=== PATIENT | male | born 1975 | race African-American/Black ===

== ENCOUNTER → 2016-10-17 | Outpatient (CLI) | payer OTHER ==
[~2016-10-17] MED LIST: BUPR-79 PO; BUSP15TA70 PO; IBUP-1050 PO; PRLSR20 PO
[2016-10-17 09:38] LABS: BASO % 0.3 %; BASO ABS # 0.02 K/uL (0-0.2); COMPLETE YES; EOS % 3.6 %; HEMATOCRIT 44.3 % (42-52); IG% 0.1 %; LYMPH % 34.6 %; LYMPH ABS # 2.31 K/uL (1.2-3.4); MEAN CELL VOLUME 88.6 fL (80-100); MEAN CORPUSCULAR HEMOGLOBIN 30.4 pg (25-34); MEAN CORPUSCULAR HGB CONC 34.3 g/dl (32-36); MONO % 9.9 %; NEUT % 51.5 %; PLATELET COUNT 242 K/uL (130-400); WHITE BLOOD COUNT 6.67 K/uL (4.8-10.8)
[2016-10-17 10:02] LABS: ALT/SGPT 43 U/L (12-78); BLOOD UREA NITROGEN 12 mg/dl (7-18); BUN/CREATININE RATIO 10.9 (10-20); CALCIUM 8.7 mg/dl (8.5-10.1); CARBON DIOXIDE 29 mmol/L (21-32); CHLORIDE 105 mmol/L (98-107); CHOLESTEROL 274 mg/dl (0-200); GLUCOSE 138 mg/dl (70-99); POTASSIUM 4.1 mmol/L (3.5-5.1); SODIUM 140 mmol/L (136-145); TRIGLYCERIDES 172 mg/dl (0-150); VERY LOW DENSITY LIPOPROT CALC 34 mg/dl
[2016-10-17 10:19] LABS: ALB/GLOB RATIO 0.9 (0.9-2); ALKALINE PHOSPHATASE 100 U/L (45-117); AST/SGOT 23 U/L (15-37); CHOLESTEROL/HDL RATIO 7.6; HDL CHOLESTEROL 36 mg/dl; LDL CHOLESTEROL CALCULATED 204 mg/dl
--- NOTE | 2016-10-24 11:16 | CODING QUERY MEDICAL NECESSITY ---
SUPPORTING DIAGNOSIS NEEDED A supporting diagnosis is required for the test/procedure performed on this patient in order for us to be reimbursed by the patient's insurance. Please provide a supporting diagnosis for the following test/procedure listed below next to the test name along with your signature. *If there is no additional diagnosis for this patient that would support the following test/procedure please document that below next to the test/procedure. Test(s)/Procedure(s) that require a supporting diagnosis: * VITAMIN D, 25-HYDROXY DIAGNOSIS: Provider Signature: Date: Thank you Nalini Ayala [employer] Once completed, please kindly fax back to [phone] For questions please call [phone]
== END | disposition home or self-care (01) ==
LOC: C.LAB 07:22
PROVIDERS: ATTEND Psychiatry & Neurology Psychiatry
DX: F31.81 Bipolar II disorder (principal); Z13.21 Encounter for screening for nutritional disorder

== ENCOUNTER → 2017-02-12 | Outpatient (CLI) | payer OTHER ==
[~2017-02-12] MED LIST changes: +SINCALIDE INJ 2.4 MCG in SODIUM CHLORIDE 0.9% 100ML 100 ML IV ONE
--- NOTE | 2017-02-12 10:08 | DIAGNOSTIC IMAGING REPORT ---
NUCLEAR MEDICINE HEPATOBILIARY SCAN WITH EJECTION FRACTION HISTORY: Gallbladder POLYP AND FATTY LIVER COMPARISON: None. TECHNIQUE: Immediately following the intravenous administration of 5.4 mCi Tc-99m Choletec, dynamic anterior abdominal imaging pre/post 2.4 mcg of Kinevac was performed. FINDINGS: Uniform hepatic tracer accumulation is shown. Prompt intrahepatic biliary excretion is seen. The gallbladder, common bile duct, and small bowel are all visualized by 60 minutes. This appearance represents the normal sequence of biliary excretion. The gall bladder ejection fraction following administration of Kinevac was 90% (normal >35%). IMPRESSION: 1. No evidence for cystic duct obstruction. 2. Gallbladder ejection fraction calculated to be 90 %. Electronically signed by: Johnathon Carvalho M.D. 02/12/2017 10:06 AM Dictated Date/Time: 02/12/2017 10:05 AM
== END | disposition home or self-care (01) ==
LOC: C.NUCL 07:42
PROVIDERS: ATTEND Physician Assistant
DX: K82.4 Cholesterolosis of gallbladder (principal); K76.0 Fatty (change of) liver, not elsewhere classified

== ENCOUNTER 2023-08-30 06:38 | Inpatient (IN) ==
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
--- OUTSIDE RECORDS SUMMARY | 2023-08-30 06:43 | External Medical Summary | Summary of Care ---
Author Name Unknown Organization [facility] Address [address] [place] [address] Phone [phone] Care Team Providers Care Shaft Repairer Name Role Phone Linda Membreno MD Primary Care Provid er Reason for Visit * Reason Onset Date Comments Medication Refill 08/02/2023 Encounter Details Date Type Department Care Team (Late st Contact Info) Description 08/02/2023 Refill [facility] [address] [place] [address] Linda Membreno MD [address] [place] [address] Other intervertebral disc degeneration, lumbar region; Cervical disc disorder with radiculopathy Allergies Active Allergy Reactions Criticality Noted Date Comments Adhesive Tape 04/27/2011 Rash, sensitive skin Other Allergy (See Comments) Rash 018 Tide Detergent documented as of this encounter (statuses as of 08/05/2023) Medications Medication Sig Dispensed Refills Start Date [...] mouth 2 times a day. 11/22/2020 Active Amphetamine-Dextroa mphetamine 30 MG Oral Tablet Take 1 Tablet [...] Omeprazole 20 MG Oral Capsule Delayed Release (PriLOSEC)Indicatio ns:Gastroesophageal reflux disease without esophagitis Take 1 Capsule by mouth in the morning. 30 Capsule 11 10/23/2022 Active HYDROcodone-Acetami nophen 7.5-325 MG Oral Tablet Take 1 Tablet by mouth every 6 hours as needed. Prescribed by Pain Mgmt in [place]. Active Lidocaine Viscous HCl 2 % Mouth/Throat SolutionIndications :Sore throat (viral) SWISH AND SPIT NEEDED FOR [...] 04/26/2023 Active Carisoprodol 350 MG Oral Tablet (Soma)Indications:O ther intervertebral disc degeneration, lumbar region,Cervical disc disorder with radiculopathy Take 1 Tablet by mouth 2 times a day as needed for Muscle spasms. 60 Tablet 08/05/2023 Active Carisoprodol 350 MG Oral Tablet (Soma)Indications:O ther intervertebral disc degeneration, lumbar region,Cervical disc disorder with radiculopathy Take 1 Tablet by mouth 2 times a day as needed for Muscle spasms. 60 Tablet 06/28/2023 4 Discontinue d(Refill) Hospital, Clinic, or Other Facility Administered Medication Ordered Dose Route Frequency Start Date End Date Status vitamin b-12 (Cyanocobalamin) inj 1,000 mcgIndications:S/P gastric bypass 1000 mcg IM [id number] 04/02/2023 03/03/2024 Active documented as of this encounter (statuses as of 08/05/2023) Active Problems Problem Noted Date Diagnosed Date [...] single colonoscopy and goes yearly [facility]CGINN[facility] OTHER*[id number] 01/21/2018 Bipolar 2 disorder 10/22/2016 Adjustment disorder with depressed mood 10/30/19 15 S/P uvulopalatopharyngoplasty 01/07/2013 Recurrent inguinal hernia unilateral 09/11/2012 Tobacco use disorder 09/11/2012 GERD (gastroesophageal reflux disease) Arthritis Chronic low back pain Dyslipidemia, goal LDL below 160 History of sleep apnea Overview: Resolved with weight loss (163 lb) documented as of this encounter (statuses as of 08/05/2023) Resolved Problems Problem Noted Date Diagnosed Date [...] as of this encounter (statuses as of 08/05/2023) Immunizations Name Administration Dates Next Due TDAP [...] money to get more. Never true 04/01/2023 Sex and Gender Information Value Date [...] (15 years old or older) No 03/07/19 19 Cognitive Status Response Date of Assessm ent Because of a physical, menta l, or emotional condition, do you have serious difficulty concentrating, remembering, or making decisions? (5 years old or older) No 03/07/2018 documented as of this encounter Miscellaneous Notes * Telephone Encounter - Linda Membreno MD - 08/05/2023 8:32 AM EDT Signed Prescriptions: Disp Refills Carisoprodol 350 MG Oral Tablet (Soma) 60 Tab*0 Sig: Take 1 Tablet by mouth 2 times a day as needed for Muscle spasms. Authorizing Provider: LINDA MEMBRENO * Telephone Encounter - Gloria Rendon [facility] - 08/02/2023 3:41 PM EDTPending Prescriptions: Disp Refills Carisoprodol 350 MG Oral Tablet (Soma) 60 Tab*0 Sig: Take 1 Tablet by mouth 2 times a day as needed for Muscle spasms. * Telephone Encounter - Gloria Rendon RPh - 08/02/2023 3:40 PM EDT I have reviewed the patients controlled substance dispensing history in the Prescription Drug Monitoring Program in compliance with the [facility] regulations before prescribing a controlled substance. PDMP checked on 08/02/2023. Pending Prescriptions: Disp Refills Carisoprodol 350 MG Oral Tablet (Soma) 60 Tab*0 Sig: Take 1 Tablet by mouth 2 times a day as needed for Muscle spasms. Last Visit: 05/02/2023 (in office), 06/15/2020 (telemedicine) Next Visit: Visit date not found Date medication was last filled: 06/28/23 Date medication is due for refill: 07/27/23 [id number] [id number] Is this request for a controlled substance? Yes and Urine Drug Screen was completed Toxicology results: Results for orders placed or performed during the hospital encounter of 08/20/22 TOXICOLOGY, URINE SCREEN W/ CONFIRMATION Result Value Amphetamines Screen, U Positive (A) Benzodiazepines Screen, U Negative Cannabinoids Screen, U Negative Cocaine Metabolite Screen, U Negative Fentanyl Screen, U Positive (A) Hydrocodone Screen, U Negative Methadone Metabolite Screen, U Negative Morphine/Codeine Screen, U Negative Oxycodone Screen, U Negative Narrative Cutoff Concentrations: Drug Level Amphetamines 500 ng/mL Benzodiazepines 100 ng/mL Cannabinoids 50 ng/mL Cocaine Metabolite 150 ng/mL Fentanyl 1 ng/mL Hydrocodone / Hydromorphone 300 ng/mL Methadone Metabolite 100 ng/mL Morphine / Codeine 300 ng/mL Oxycodone / Oxymorphone 100 ng/mL Screening results are presumptive and can only be used for medical purposes. Positive screening results are reflexed to confirmatory testing. Please approve if appropriate. Thanks, Gloria Rendon, PharmD Clinical Pharmacist [facility] ([facility] [phone] 08/02/2023, 3:40 PM * Telephone Encounter - Cynthia Meyer CPhT - 08/02/2023 3:31 PM EDT Pt is completely out of medication asking high priority. Did you pend patient's preferred pharmacy and medication before forwarding?yes Pharmacy: [id number] [id number] Pending Prescriptions: Disp Refills Carisoprodol 350 MG Oral Tablet (Soma) 60 Tab*0 Sig: Take 1 Tablet by mouth 2 times a day as needed for Muscle spasms. Last Visit: 05/02/2023 (in office), 06/15/2020 (telemedicine) Next Visit: Visit date not found If no future appointments scheduled, and last appointment is greater than a year ago, please schedule patient for a follow-up appointment Last date the medication was ordered: 06/28/2023 Is this request for a controlled substance?Yes, What was the last refill date 06/28/2023 w/ quantity 60 and dosage 350 MG and Urine Drug Screen was completed Urine Drug Screen: Results for orders placed or performed during the hospital encounter of 08/20/22 TOXICOLOGY, URINE SCREEN W/ CONFIRMATION Result Value Amphetamines Screen, U Positive (A) Benzodiazepines Screen, U Negative Cannabinoids Screen, U Negative Cocaine Metabolite Screen, U Negative Fentanyl Screen, U Positive (A) Hydrocodone Screen, U Negative Methadone Metabolite Screen, U Negative Morphine/Codeine Screen, U Negative Oxycodone Screen, U Negative Narrative Cutoff Concentrations: Drug Level Amphetamines 500 ng/mL Benzodiazepines 100 ng/mL Cannabinoids 50 ng/mL Cocaine Metabolite 150 ng/mL Fentanyl 1 ng/mL Hydrocodone / Hydromorphone 300 ng/mL Methadone Metabolite 100 ng/mL Morphine / Codeine 300 ng/mL Oxycodone / Oxymorphone 100 ng/mL Screening results are presumptive and can only be used for medical purposes. Positive screening results are reflexed to confirmatory testing. Patient Phone Numbers Labs: Lab Results Component Value Date/Time CREAT 1.0 04/22/2023 09:25 AM CREAT 1.1 02/27/2019 07:42 AM POTASSIUM 4.1 04/22/2023 09:25 AM POTASSIUM 3.9 02/27/2019 07:42 AM TSH 0.67 04/22/2023 09:25 AM TSH 0.98 06/06/2018 10:32 AM LDLCALC 123 10/23/2022 10:45 AM LDLCALC 92 02/27/2019 07:42 AM LDLDIRECT NOT APPLICABLE 10/20/2012 07:56 AM ALT 29 04/22/2023 09:25 AM ALT 41 02/27/2019 07:42 AM HGBA1C 6.4 (H) 04/22/2023 09:25 AM HGBA1C 6.0 (H) 02/27/2019 07:42 AM documented in this encounter Plan of Treatment Upcoming Encounters Date Type Department Care Team (Late st Contact Info) Description 08/16/2023 9:30 AM EDT Office Visit Orthopaedics Spine Surgery, [facility] [address] [place] [id number] Quinton Toro MD [address] [place] [address] 08/20/2023 9:30 AM EDT [facility] [address] [place] [address] 10/29/2023 2:00 PM EDT Office Visit Nutrition & Weight Management, [facility] [address] [place] [id number] Lorin Frazier PA-C [address] [facility] [place] [id number] Scheduled Procedures Name Priority Associated Diagnoses Date/Ti me COLONOSCOPY FLEXIBLE PROXIMA L DIAGNOSTIC Recall History of colon polyps Family history of colonic polyps Health Maintenance Due Date Last Done Comments Pneumococcal Vaccine: Pediatrics (0 to 5 Years) and At-Risk Patients (6 to 64 Years) (1 of 2 - PCV) 12/16/1979 Hepatitis C Screening 12/16/1991 Hepatitis B (1 of 3 - 19+ 3-dose series) 1992 Cologuard 2018 Fecal Occult Blood Test 2018 11/12/2016 Sigmoidoscopy 2018 COVID-19 Vaccine (1 - 2022- season) 2022 Influenza Vaccine (FLU shot) (Season Ended) 2023 Colonoscopy 04/17/2024 04/17/2019, 04/17/2019 Colorectal Cancer Screening 04/17/2024 HbA1c 04/22/2024 04/22/2023, 09/26, 10/16/2021, Additional history exists Lipid Panel 10/24/2027 10/23/2022, 02/25, 02/27/2019, Additional history exists DTaP,Tdap,and Td Vaccines (2 - Td or Tdap) 09/02/2029 09/03/2019 Albumin/Creatinine Ratio Discontinued 04/30/2017 Diabetic Foot Exam Discontinued 06/11/2017 RETIRED - COLONOSCOPY-EVERY 5 YRS AGES 18-100 Discontinued 04/17/2019, 04/17/2019 Diabetic Eye Exam Discontinued 01/25/2023, , 12/19/2022, Additional history exists GARDASIL-HPV IMMUNIZATION SERIES Aged Out No longer eligible based on patient's age to complete this topic MENINGOCOCCAL (MENACTRA/MENVEO) Aged Out No longer eligible based on patient's age to complete this topic documented as of this encounter Medical Devices Not on filedocumented as of this encounter Visit Diagnoses Diagnosis Other intervertebral disc degeneration, lumbar region Cervical disc disorder with radiculopathy Brachial neuritis or radiculitis nos documented in this encounter Advance Directives * Full Code [...] Power of Attor fausto? No Care Teams Shaft Repairer Relationship Specialty Start Date End Date Linda Membreno MD [address] [facility] [place] [address] PCP - General Family Medicine 01/13/20 documented as of this encounter
[2023-08-30] MEDS: ONDANSETRON INJ 2 MG/ML 2 ML VIAL IV STA (07:35)
--- NOTE | 2023-08-30 07:37 | Emergency Department Note ---
History of Present Illness General Chief complaint: Abdominal Pain Stated complaint: PAIN IN RIGHT SIDE Time Seen by Provider: 08/30/23 06:59 History of Present Illness Maximum Pain Intensity: 9 This is a 47-year-old male that presents to the emergency department via private vehicle with complaints of "left-sided abdominal pain". Patient notes this began yesterday. He notes some the pain is also in his left low back. He notes that since 3 AM this morning he has not been able to sleep since the pain has been persistent and /. He notes associated nausea. He denies any known history of kidney stones. He does have a history of gastric bypass. He has a history of also 2 abdominal hernias performed in about 2001. He denies any trauma, injury, fevers or chills. No vomiting. Patient notes him he takes a deep breath or is increase of the pain in the left lower quadrant area. There is no central chest pain. He is still urinating and moving his bowels. Home Medications Medication Instructions Recorded Confirmed Type calcium-vitamin D3-vitamin K 500 1 tab PO BID 03/15/19 08/30/23 History mg-1,000 unit-40 mcg chewable tablet (Citracal-D3 Soft Chew) mwoaaqud-llwhwhmr-aiajx acid 400 1 tab PO DAILY 03/15/19 08/30/23 History mcg-vit K 20 mcg-lycop 300 mcg tablet (One-A-Day Men's Multivitamin) ziprasidone HCl 80 mg capsule 160 mg PO HS 03/15/19 08/30/23 History dextroamphetamine-amphetamine 30 30 mg PO DAILY 08/20/22 08/30/23 History mg tablet propranolol 10 mg tablet 10 mg PO HS PRN Anxiety 08/20/22 08/30/23 History topiramate 100 mg tablet 100 mg PO BID 08/20/22 08/30/23 History carisoprodol 350 mg tablet 350 mg PO BID PRN Muscle Spasm 09/07/22 08/30/23 History bupropion HCl 200 mg tablet,12 hr 200 mg PO DAILY 08/30/23 08/30/23 History sustained-release hydrocodone 10 mg-acetaminophen 1 tab PO Q6H PRN Pain 08/30/23 08/30/23 History 325 mg tablet omeprazole 20 mg capsule,delayed 20 mg PO DAILY 07/05/24 07/05/24 History release Allergies Allergy/AdvReac Type Severity Reaction Status Date / Time adhesive Allergy Intermediate RASH Verified 08/20/22 18:30 TIDE DETERGENT Allergy Intermediate Hives Uncoded 08/20/22 18:30 Past Med/Surg History Problem List Diverticulitis (Acute) Left sided abdominal pain (Acute) Lumbar degenerative disc disease Chronic lower back pain Diabetes type 2, controlled Sacroiliitis Lumbar facet joint syndrome Medical History Tobacco use disorder Obstructive sleep apnea Esophageal reflux Herniated disc Surgical History History of colonoscopy History of esophagogastroduodenoscopy (EGD) History of gastric bypass Family History Other Cancer Diabetes Heart disease Lung disease Social History Smoking Status: Never smoker Preferred Language: [place]an marital status: current occupational status: employed Feels Safe at Home: Yes Review of Systems A total of 10 systems reviewed and were otherwise negative Physical Exam Vital Signs Vital Signs - 24 hr 08/30/23 06:42 08/30/23 07:43 08/30/23 07:54 Temperature 36.2 C L Temperature Source Temporal Artery Scan Pulse Rate 79 54 L Pulse Rate [Right Finger] 55 L Pulse Rate from SpO2 Sensor 54 L Pulse Rhythm Regular Pulse Rhythm [Right Finger] Regular Pulse Strength Normal Pulse Strength [Right Finger] Normal Respiratory Rate 18 16 16 Respiratory Effort / Characteristics Non-Labored Spontaneous Non-Labored Respiratory Depth Normal Normal Respiratory Pattern Regular Regular Blood Pressure 119/74 149/78 H Blood Pressure [Left Arm] 149/78 H Blood Pressure Mean 89 101 Blood Pressure Mean [Left Arm] 101 Blood Pressure Position Lying Blood Pressure Position [Left Arm] Lying Pulse Oximetry 100 100 99 Oxygen Delivery Method Room Air Room Air Sepsis Recent Fever Within 48 Hours No Sepsis New/Unexplained Change in Mental Status N/A Sepsis Action Taken by Nursing No Action Required 08/30/23 08:09 08/30/23 08:12 08/30/23 08:15 Temperature Temperature Source Pulse Rate 59 L 58 L 58 L Pulse Rate [Right Finger] Pulse Rate from SpO2 Sensor 57 L 58 L Pulse Rhythm Pulse Rhythm [Right Finger] Pulse Strength Pulse Strength [Right Finger] Respiratory Rate 16 17 Respiratory Effort / Characteristics Respiratory Depth Respiratory Pattern Blood Pressure Blood Pressure [Left Arm] Blood Pressure Mean Blood Pressure Mean [Left Arm] Blood Pressure Position Blood Pressure Position [Left Arm] Pulse Oximetry 99 100 Oxygen Delivery Method Sepsis Recent Fever Within 48 Hours Sepsis New/Unexplained Change in Mental Status Sepsis Action Taken by Nursing 08/30/23 08:30 08/30/23 08:30 08/30/23 08:30 Temperature Temperature Source Pulse Rate Pulse Rate [Right Finger] Pulse Rate from SpO2 Sensor Pulse Rhythm Pulse Rhythm [Right Finger] Pulse Strength Pulse Strength [Right Finger] Respiratory Rate Respiratory Effort / Characteristics Respiratory Depth Respiratory Pattern Blood Pressure 143/83 H 143/83 H 143/83 H Blood Pressure [Left Arm] Blood Pressure Mean 110 110 110 Blood Pressure Mean [Left Arm] Blood Pressure Position Blood Pressure Position [Left Arm] Pulse Oximetry Oxygen Delivery Method Sepsis Recent Fever Within 48 Hours Sepsis New/Unexplained Change in Mental Status Sepsis Action Taken by Nursing 08/30/23 08:33 08/30/23 09:03 08/30/23 09:04 Temperature Temperature Source Pulse Rate 54 L 53 L Pulse Rate [Right Finger] Pulse Rate from SpO2 Sensor 52 L 53 L Pulse Rhythm Pulse Rhythm [Right Finger] Pulse Strength Pulse Strength [Right Finger] Respiratory Rate 20 15 Respiratory Effort / Characteristics Respiratory Depth Respiratory Pattern Blood Pressure 153/82 H Blood Pressure [Left Arm] Blood Pressure Mean 107 Blood Pressure Mean [Left Arm] Blood Pressure Position Blood Pressure Position [Left Arm] Pulse Oximetry 98 99 Oxygen Delivery Method Sepsis Recent Fever Within 48 Hours Sepsis New/Unexplained Change in Mental Status Sepsis Action Taken by Nursing 08/30/23 09:04 08/30/23 09:04 08/30/23 09:06 Temperature Temperature Source Pulse Rate 62 Pulse Rate [Right Finger] Pulse Rate from SpO2 Sensor 57 L Pulse Rhythm Pulse Rhythm [Right Finger] Pulse Strength Pulse Strength [Right Finger] Respiratory Rate 18 Respiratory Effort / Characteristics Respiratory Depth Respiratory Pattern Blood Pressure 153/82 H 153/82 H Blood Pressure [Left Arm] Blood Pressure Mean 107 107 Blood Pressure Mean [Left Arm] Blood Pressure Position Blood Pressure Position [Left Arm] Pulse Oximetry 98 Oxygen Delivery Method Sepsis Recent Fever Within 48 Hours Sepsis New/Unexplained Change in Mental Status Sepsis Action Taken by Nursing 08/30/23 09:09 08/30/23 09:27 08/30/23 09:30 Temperature Temperature Source Pulse Rate 55 L 54 L Pulse Rate [Right Finger] Pulse Rate from SpO2 Sensor 54 L Pulse Rhythm Regular Pulse Rhythm [Right Finger] Pulse Strength Pulse Strength [Right Finger] Respiratory Rate 19 Respiratory Effort / Characteristics Respiratory Depth Respiratory Pattern Blood Pressure 147/82 H Blood Pressure [Left Arm] Blood Pressure Mean 95 Blood Pressure Mean [Left Arm] Blood Pressure Position Blood Pressure Position [Left Arm] Pulse Oximetry 100 99 Oxygen Delivery Method Room Air Sepsis Recent Fever Within 48 Hours Sepsis New/Unexplained Change in Mental Status Sepsis Action Taken by Nursing 08/30/23 09:30 08/30/23 09:33 08/30/23 09:54 Temperature Temperature Source Pulse Rate 53 L 55 L Pulse Rate [Right Finger] Pulse Rate from SpO2 Sensor 53 L 55 L Pulse Rhythm Pulse Rhythm [Right Finger] Pulse Strength Pulse Strength [Right Finger] Respiratory Rate 19 16 Respiratory Effort / Characteristics Respiratory Depth Respiratory Pattern Blood Pressure 147/82 H Blood Pressure [Left Arm] Blood Pressure Mean 95 Blood Pressure Mean [Left Arm] Blood Pressure Position Blood Pressure Position [Left Arm] Pulse Oximetry 99 99 Oxygen Delivery Method Sepsis Recent Fever Within 48 Hours Sepsis New/Unexplained Change in Mental Status Sepsis Action Taken by Nursing 08/30/23 10:00 08/30/23 10:00 08/30/23 10:03 Temperature Temperature Source Pulse Rate 52 L Pulse Rate [Right Finger] Pulse Rate from SpO2 Sensor 52 L Pulse Rhythm Pulse Rhythm [Right Finger] Pulse Strength Pulse Strength [Right Finger] Respiratory Rate 14 Respiratory Effort / Characteristics Respiratory Depth Respiratory Pattern Blood Pressure 145/85 H 145/85 H Blood Pressure [Left Arm] Blood Pressure Mean 99 99 Blood Pressure Mean [Left Arm] Blood Pressure Position Blood Pressure Position [Left Arm] Pulse Oximetry 100 Oxygen Delivery Method Sepsis Recent Fever Within 48 Hours Sepsis New/Unexplained Change in Mental Status Sepsis Action Taken by Nursing 08/30/23 10:21 08/30/23 10:21 08/30/23 10:21 Temperature Temperature Source Pulse Rate 49 L Pulse Rate [Right Finger] Pulse Rate from SpO2 Sensor Pulse Rhythm Pulse Rhythm [Right Finger] Pulse Strength Pulse Strength [Right Finger] Respiratory Rate 18 Respiratory Effort / Characteristics Respiratory Depth Respiratory Pattern Blood Pressure 157/86 H 157/86 H 157/86 H Blood Pressure [Left Arm] Blood Pressure Mean 103 103 103 Blood Pressure Mean [Left Arm] Blood Pressure Position Blood Pressure Position [Left Arm] Pulse Oximetry 98 Oxygen Delivery Method Sepsis Recent Fever Within 48 Hours Sepsis New/Unexplained Change in Mental Status Sepsis Action Taken by Nursing 08/30/23 10:30 08/30/23 10:30 08/30/23 10:33 Temperature Temperature Source Pulse Rate 52 L Pulse Rate [Right Finger] Pulse Rate from SpO2 Sensor 52 L Pulse Rhythm Pulse Rhythm [Right Finger] Pulse Strength Pulse Strength [Right Finger] Respiratory Rate 24 Respiratory Effort / Characteristics Respiratory Depth Respiratory Pattern Blood Pressure 151/87 H 151/87 H Blood Pressure [Left Arm] Blood Pressure Mean 116 116 Blood Pressure Mean [Left Arm] Blood Pressure Position Blood Pressure Position [Left Arm] Pulse Oximetry 98 Oxygen Delivery Method Sepsis Recent Fever Within 48 Hours Sepsis New/Unexplained Change in Mental Status Sepsis Action Taken by Nursing 08/30/23 10:42 08/30/23 11:00 08/30/23 11:06 Temperature Temperature Source Pulse Rate 51 L 55 L Pulse Rate [Right Finger] Pulse Rate from SpO2 Sensor 51 L 55 L Pulse Rhythm Pulse Rhythm [Right Finger] Pulse Strength Pulse Strength [Right Finger] Respiratory Rate 16 19 Respiratory Effort / Characteristics Respiratory Depth Respiratory Pattern Blood Pressure 148/91 H Blood Pressure [Left Arm] Blood Pressure Mean 102 Blood Pressure Mean [Left Arm] Blood Pressure Position Blood Pressure Position [Left Arm] Pulse Oximetry 97 99 Oxygen Delivery Method Sepsis Recent Fever Within 48 Hours Sepsis New/Unexplained Change in Mental Status Sepsis Action Taken by Nursing 08/30/23 11:33 08/30/23 11:42 08/30/23 12:00 Temperature Temperature Source Pulse Rate 52 L Pulse Rate [Right Finger] Pulse Rate from SpO2 Sensor 52 L Pulse Rhythm Pulse Rhythm [Right Finger] Pulse Strength Pulse Strength [Right Finger] Respiratory Rate 16 Respiratory Effort / Characteristics Respiratory Depth Respiratory Pattern Blood Pressure 143/87 H 145/88 H Blood Pressure [Left Arm] Blood Pressure Mean 96 100 Blood Pressure Mean [Left Arm] Blood Pressure Position Blood Pressure Position [Left Arm] Pulse Oximetry 99 Oxygen Delivery Method Sepsis Recent Fever Within 48 Hours Sepsis New/Unexplained Change in Mental Status Sepsis Action Taken by Nursing 08/30/23 12:03 08/30/23 12:09 08/30/23 12:30 Temperature Temperature Source Pulse Rate 56 L 64 Pulse Rate [Right Finger] Pulse Rate from SpO2 Sensor 55 L Pulse Rhythm Pulse Rhythm [Right Finger] Pulse Strength Pulse Strength [Right Finger] Respiratory Rate 20 Respiratory Effort / Characteristics Respiratory Depth Respiratory Pattern Blood Pressure 155/88 H Blood Pressure [Left Arm] Blood Pressure Mean 93 Blood Pressure Mean [Left Arm] Blood Pressure Position Blood Pressure Position [Left Arm] Pulse Oximetry 98 Oxygen Delivery Method Sepsis Recent Fever Within 48 Hours Sepsis New/Unexplained Change in Mental Status Sepsis Action Taken by Nursing 08/30/23 12:30 08/30/23 12:30 08/30/23 12:30 Temperature Temperature Source Pulse Rate 63 Pulse Rate [Right Finger] Pulse Rate from SpO2 Sensor 61 Pulse Rhythm Pulse Rhythm [Right Finger] Pulse Strength Pulse Strength [Right Finger] Respiratory Rate 19 Respiratory Effort / Characteristics Respiratory Depth Respiratory Pattern Blood Pressure 155/88 H 155/88 H Blood Pressure [Left Arm] Blood Pressure Mean 93 93 Blood Pressure Mean [Left Arm] Blood Pressure Position Blood Pressure Position [Left Arm] Pulse Oximetry 99 Oxygen Delivery Method Sepsis Recent Fever Within 48 Hours Sepsis New/Unexplained Change in Mental Status Sepsis Action Taken by Nursing VITAL SIGNS - Vital signs and nursing notes were reviewed. Stable and afebrile. GENERAL -47-year-old male appearing his stated age who is in no acute distress. Communicates well with provider and answers questions appropriately. SKIN - Without rashes. No meningeal or petechial rash. HEAD - NC/AT. EYES - PERRL with EOMI bilaterally. Sclera anicteric. EARS - No deformities of external structures noted on gross examination bilaterally. NOSE - Midline and without cyanosis. No epistaxis or purulent drainage noted. MOUTH/OROPHARYNX - Without perioral cyanosis. NECK - Neck with FROM. No nuchal rigidity. LUNGS - Chest wall symmetric without accessory muscle use, intercostals retractions, or central cyanosis. Normal vesicular breath sounds CTA B/L. No wheezes, rales, or rhonchi appreciated. CARDIAC - RRR with S1/S2. No murmur, rubs, or gallops appreciated. ABDOMEN - Abdominal contour normal without pulsations or visible masses. BS normoactive all four quadrants. Left mid and left lower quadrant abdominal tenderness to palpation. Patient is holding his hand overlying this area. No palpable masses, hepatosplenomegaly, or ascites noted. EXTREMITIES - No clubbing or peripheral cyanosis. +5/5 strength noted in UE/LE bilaterally. NEUROLOGIC - Cranial nerves II through XII grossly intact. PSYCH -alert, oriented and pleasant on exam Course Administered Medications Discontinued Medications Sodium Chloride (Nss) 1,000 mls @ 999 mls/hr IV .Q1H1M LEANNA Stop: 08/30/23 13:15 Last Admin: 08/30/23 12:38 Dose: 999 mls/hr Documented By: ANDREE Piperacillin Sod/Tazobactam Sod (Zosyn) 4.5 gm in 100 mls @ 200 mls/hr IV NOW ONE Stop: 08/30/23 12:38 Last Infusion: 08/30/23 13:40 Dose: Infused Documented By: Admin: 08/30/23 12:38 Dose: 200 mls/hr Documented By: ANDREE Ioversol (Optiray 320 100ml) 94 ml IV ONCE ONE Stop: 08/30/23 10:18 Last Admin: 08/30/23 10:17 Dose: 94 ml Documented By: CLAY Morphine Sulfate (Morphine Sulfate 4 Mg/Ml 1 Ml Carp\\Vial) 4 mg IV NOW STA Stop: 08/30/23 07:18 Last Admin: 08/30/23 07:38 Dose: 4 mg Documented By: ANDREE Morphine Sulfate (Morphine Sulfate 2 Mg/Ml Carp) 2 mg IV NOW STA Stop: 08/30/23 08:39 Last Admin: 08/30/23 09:15 Dose: 2 mg Documented By: ANDREE Morphine Sulfate (Morphine Sulfate 2 Mg/Ml Carp) 2 mg IV NOW STA Stop: 08/30/23 12:10 Last Admin: 08/30/23 12:38 Dose: 2 mg Documented By: ANDREE Ondansetron HCl (Ondansetron Inj 2 Mg/Ml 2 Ml Vial) 4 mg IV NOW STA Stop: 08/30/23 07:18 Last Admin: 08/30/23 07:35 Dose: 4 mg Documented By: ANDREE Medical Decision Making Laboratory Data 08/30/23 07:40 08/30/23 07:40 Lab Results 08/30/23 08/30/23 08/30/23 Range/Units 07:40 07:50 09:05 WBC 6.06 (4.8-10.8) K/ul RBC 4.48 L (4.70-6.10) M/uL Hgb 14.1 (14.0-18.0) g/dl Hct 42.4 (42.0-52.0) % MCV 94.6 (80.0-100.0) fL MCH 31.5 (25.0-34.0) pg MCHC 33.3 (32.0-36.0) g/dL RDW Std Deviation 43.0 (36.4-46.3) fL RDW Coeff of Irvin 12.4 (11.5-14.5) % Plt Count 233 (130-400) K/uL MPV 9.3 L (9.4-12.4) fL Immature Gran % (Auto) 0.2 % Neut % (Auto) 63.5 % Lymph % (Auto) 24.8 % Bland % (Auto) 9.1 % Eos % (Auto) 2.1 % Baso % (Auto) 0.3 % Neut # (Auto) 3.85 (1.40-6.50) K/uL Lymph # (Auto) 1.50 (1.20-3.40) K/uL Bland # (Auto) 0.55 (0.11-0.59) K/uL Eos # (Auto) 0.13 (0.00-0.50) K/uL Baso # (Auto) 0.02 (0.00-0.20) K/uL Immature Gran # (Auto) 0.01 (0.01-0.20) K/uL Sodium 141 (136-145) mmol/L Potassium 3.7 (3.5-5.1) mmol/L Chloride 103 (98-107) mmol/L Carbon Dioxide 32 (21-32) mmol/L Anion Gap 6 (3-11) BUN 11 (6-23) mg/dl Creatinine 0.99 (0.6-1.4) mg/dl Est Cr Clr Drug Dosing 92.3 ml/min Est GFR ( Amer) 103.2 ml/min Est GFR (Non-Af Amer) 89.1 ml/min BUN/Creatinine Ratio 11.1 (10-20) Glucose 97 (70-99(Fasting)) mg/dl Lactate 1.2 (0.4-2.0) mmol/L Calcium 8.7 (8.6-10.3) mg/dl Magnesium 1.8 (1.7-2.4) mg/dl Total Bilirubin 0.3 (0.2-1.0) mg/dl AST 23 (13-39) U/L ALT 24 (7-52) U/L Alkaline Phosphatase 71 (34-104) U/L Troponin I High Sens 3.7 (0-20) pg/ml Total Protein 6.9 (6.0-8.3) gm/dl Albumin 4.1 (3.4-5.0) gm/dl Globulin 2.8 (2.5-4.0) gm/dl Albumin/Globulin Ratio 1.5 (0.9-2) Lipase 21 (11-82) U/L Urine Color Yellow Urine Appearance Clear (Clear) Urine pH 6.5 (4.5-7.5) Ur Specific [place] 1.014 (1.000-1.030) Urine Protein Negative (Negative) Urine Glucose (UA) Negative (Negative) Urine Ketones Negative (Negative) Urine Blood Negative (Negative) Urine Nitrite Negative (Negative) Urine Bilirubin Negative (Negative) Urine Urobilinogen Negative (Negative) Ur Leukocyte Esterase Negative (Negative) Imaging Data Radiologist's Impression: Abdomen/Pelvis CT 08/30/23 07:23 CT abd pelvis oral and IV con CLINICAL HISTORY: L sided abd pain, hx of gastric bypass, nausea TECHNIQUE: Helical axial images of the abdomen and pelvis were obtained and displayed. Automated dose lowering techniques and/or adjustment according to patient size were utilized for this exam. This exam was performed with intravenous contrast. CT DOSE: 666.39 mGy.cm COMPARISON: Comparison is made to CT abdomen pelvis 08/20/2022. FINDINGS: Lower chest: Bibasilar atelectasis versus scarring is seen. There is a 5 mm nodule in the left lower lobe (series 3 image 13). Liver: Focal fatty changes are noted about the falciform ligament. Gallbladder and biliary tree: No calcified gallstones. Normal caliber wall. No intra- or extrahepatic biliary ductal dilation. Pancreas: Unremarkable, no focal lesions. Spleen: Unremarkable. Adrenals: Unremarkable. Kidneys and ureters: Unremarkable. Bladder: Unremarkable. Reproductive organs: Unremarkable. Bowel: Diverticulosis is seen without evidence of diverticulitis. Thickening of the distal descending colon and surrounding fat stranding is seen. Postsurgical changes of Lina-en-Y bypass. The appendix is normal. Lymph nodes Retroperitoneal: Unremarkable. Pelvic: Unremarkable. Mesenteric: Unremarkable. Peritoneum: Normal. Vessels: Atherosclerotic calcifications are seen. Abdominal wall: Unremarkable. Previously noted left gluteal hematoma is no longer seen Bones: Degenerative changes in the visualized spine. IMPRESSION: Thickening of the distal descending colon with surrounding fat stranding may represent mild diverticulitis without evidence of perforation or abscess. ACT 112: Negative or not required by law. Electronically signed by: Amrit Egan M.D. 08/30/2023 11:53 AM [facility] Narrative Patient was seen and evaluated as above in room B03. Review was performed of triage nursing notes and vital signs. I did review pertinent previous visits and patient history. After obtaining a thorough history and physical examination the above work up was performed. Patient presents to us today for assessment of left-sided abdominal pain. This is in the left mid and lower abdomen. No chest pain. No shortness of breath. Pain is constant. He notes when takes deep breath the pain also worsens in that left mid and left lower quadrant area. He is status post gastric bypass performed several years ago. Also history of 2 abdominal hernia surgeries but that was about 20 years ago. He has nausea with this pain. There is no trauma, injury, fevers or chills. No vomiting. No known history of kidney stone. He is tender in the left side of the abdomen in the mid area and left lower quadrant on assessment. Options of care were discussed with the patient. IV access was established. Labs were drawn. IV morphine for pain, IV Zofran for nausea. EKG was also performed prior to my assessment revealing sinus bradycardia at a rate of 53 bpm. QTc 399. QRS 92. No ST elevation. Labs reveal no leukocytosis or concerning anemia. No emergent metabolic disturbance. There is no evidence of kidney or liver failure emergently. Lactate is within normal range at 1.2. Troponin drawn to be thorough and was normal at 3.7. Lipase normal at 21. We will proceed with imaging of the abdomen and pelvis. In the absence of known kidney stone/hematuria and with history of abdominal surgery with gastric bypass, we will proceed with a full contrasted study to include IV and oral contrast. It is felt that the benefit outweighed risk. At 0835 I reexamined the patient and the patient was feeling a bit better but pain still 7/10. He was tolerating oral contrast prep well. Additional 2 mg IV morphine was ordered. CT scan of the abdomen and pelvis with IV and oral contrast was then completed and reveals acute diverticulitis. No perforation or abscess. The patient is still experiencing quite a bit of abdominal pain despite IV analgesia here. Additional IV analgesia ordered as well as IV antibiotics. I discussed benefit versus risk of inpatient versus outpatient management. Noting the patient's continued severe discomfort in the left lower abdomen, comorbidities, will proceed with inpatient management. Case was discussed with the attending physician. In the evaluation and treatment of this patient the following differential diagnoses were entertained: Acute abdomen, diverticulitis, appendicitis, bowel obstruction, gastric bypass complication, UTI, pyelonephritis, kidney stone, renal infarct, lumbar radiculopathy, among others. Impression & Plan Left sided abdominal pain, Diverticulitis Discharge Plan Visit Data Chief Complaint: Abdominal Pain Stated Complaint: PAIN IN RIGHT SIDE ED Provider: Manfred Johnson ED Midlevel Provider: Darion Castanon Discharge Problem: Left sided abdominal pain, Diverticulitis Patient Disposition: Admitted As Inpatient Condition: Good Discharge Instructions Interventions: ED Discharge Assessment Last Done: 08/30/23 13:10
[2023-08-30] MEDS: MoRPHine SULFATE 4 MG/ML 1 ML CARP\\VIAL IV STA (07:38)
[2023-08-30 08:00] LABS: Basophils # (auto) 0.02 K/uL (0.00-0.20); Basophils % (auto) 0.3 %; Eosinophils # (auto) 0.13 K/uL (0.00-0.50); Eosinophils % (auto) 2.1 %; Hematocrit (blood only) 42.4 % (42.0-52.0); Hemoglobin 14.1 g/dl (14.0-18.0); Immature Granulocytes # (auto) 0.01 K/uL (0.01-0.20); Immature Granulocytes % (auto) 0.2 %; Lymphocytes % (auto) 24.8 %; Mean Corpuscular Hemoglobin 31.5 pg (25.0-34.0); Mean Corpuscular Hgb Conc 33.3 g/dL (32.0-36.0); Mean Corpuscular Volume 94.6 fL (80.0-100.0); Mean Platelet Volume 9.3 fL (9.4-12.4); Monocytes # (auto) 0.55 K/uL (0.11-0.59); Monocytes % (auto) 9.1 %; Neutrophils # (auto) 3.85 K/uL (1.40-6.50); Neutrophils % (auto) 63.5 %; Platelet Count 233 K/uL (130-400); RDW Coefficient of Variation 12.4 % (11.5-14.5); Red Blood Count 4.48 M/uL (4.70-6.10); White Blood Count 6.06 K/ul (4.8-10.8)
[2023-08-30 08:13] LABS: Albumin Globulin Ratio 1.5 (0.9-2); Albumin Level 4.1 gm/dl (3.4-5.0); BUN Creatinine Ratio 11.1 (10-20); Bilirubin,Total 0.3 mg/dl (0.2-1.0); Calcium 8.7 mg/dl (8.6-10.3); Creatinine Clr Calc Pharmacy 92.3 ml/min; Est GFR (African American) 103.2 ml/min; Est GFR (Non-African American) 89.1 ml/min; Globulin 2.8 gm/dl (2.5-4.0); Magnesium 1.8 mg/dl (1.7-2.4); Potassium 3.7 mmol/L (3.5-5.1); Total Protein 6.9 gm/dl (6.0-8.3)
[2023-08-30 08:20] LABS: Troponin I High Sensitivity 3.7 pg/ml (0-20)
[2023-08-30] MEDS: MoRPHine SULFATE 2 MG/ML CARP IV STA ×2 (09:15→12:38)
[2023-08-30 09:30] LABS: Appearance Urine Clear (Clear); Bilirubin Urine Negative (Negative); Blood Urine Negative (Negative); Color Urine Yellow; Glucose Urine UA Negative (Negative); Ketones Urine Negative (Negative); Leukocyte Esterase Urine Negative (Negative); Nitrite Urine Negative (Negative); Protein Urine Negative (Negative); Specific Gravity Urine 1.014 (1.000-1.030); Urobilinogen Urine Negative (Negative); pH Urine 6.5 (4.5-7.5)
[2023-08-30] MEDS: OPTIRAY 320 100ml IV ONE (10:17)
--- NOTE | 2023-08-30 11:55 | CT Scan Report ---
CT abd pelvis oral and IV con CLINICAL HISTORY: L sided abd pain, hx of gastric bypass, nausea TECHNIQUE: Helical axial images of the abdomen and pelvis were obtained and displayed. Automated dose lowering techniques and/or adjustment according to patient size were utilized for this exam. This e xam was performed with intravenous contrast. CT DOSE: 666.39 mGy.cm COMPARISON: Comparison is made to CT abdomen pelvis 08/20/2022. FINDINGS: Lower chest: Bibasilar atelectasis versus scarring is seen. There is a 5 mm nodule in the left lower lobe (series 3 image 13). Liver: Focal fatty changes are noted about the falciform ligament. Gallbladder and biliary tree: No calcified gallstones. Normal caliber wall. No intra- or extrahepatic biliary ductal dilation. Pancreas: Unremarkable, no focal lesions. Spleen: Unremarkable. Adrenals: Unremarkable. Kidneys and ureters: Unremarkable. Bladder: Unremarkable. Reproductive organs: Unremarkable. Bowel: Diverticulosis is seen without evidence of diverticulitis. Thickening of the distal descending colon and surrounding fat stranding is seen. Postsurgical changes of Lina-en-Y bypass. The appendix is normal. Lymph nodes Retroperitoneal: Unremarkable. Pelvic: Unremarkable. Mesenteric: Unremarkable. Peritoneum: Normal. Vessels: Atherosclerotic calcifications are seen. Abdominal wall: Unremarkable. Previously noted left gluteal hematoma is no longer seen Bones: Degenerative changes in the visualized spine. IMPRESSION: Thickening of the distal descending colon with surrounding fat stranding may represent mild diverticu litis without evidence of perforation or abscess. ACT 112: Negative or not required by law. Electronically signed by: Amrit Egan M.D. 08/30/2023 11:53 AM
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
[2023-08-30] MEDS: PIPERACILLIN/TAZOBACTAM 4.5 GM/100 ML BAG IV ONE (12:38)
[2023-08-30] MEDS: SODIUM CHLORIDE 0.9% 1,000 ML IV SCH ×2 (12:38→14:27)
[2023-08-30] MEDS ORDERED: ACETAMINOPHEN 500 MG TAB PO PRN (13:51)
[2023-08-30] MEDS ORDERED: POLYETHYLENE (MIRALAX) 17 GM PACK PO PRN (13:51)
[2023-08-30] MEDS ORDERED: CARISOPRODOL 350 MG TABLET PO PRN (13:51)
[2023-08-30] MEDS ORDERED: HYDROmorphone INJ 0.5 MG/0.5 ML SYR IV PRN (13:51)
[2023-08-30] MEDS ORDERED: PROMETHAZINE HCL 6.25 MG in SODIUM CHLORIDE 0.9% 50 ML IV PRN (13:51)
[2023-08-30] MEDS ORDERED: PROPRANOLOL HCL 10 MG TAB PO PRN (13:51)
[2023-08-30] MEDS: KETOROLAC TROMETHAMINE 15 MG/ML VIAL IV PRN (14:19)
[2023-08-30] MEDS: ENOXAPARIN INJ 40 MG/0.4 ML SYR SQ SCH (14:39)
[2023-08-30] MEDS: HYDROcodone/ACETAMINOPHEN 10/325 TAB PO PRN (15:16)
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
[2023-08-30] MEDS: PIPERACILLIN/TAZOBACTAM 4.5 GM in DEXTROSE 5% MINI-B 100 ML IV SCH (16:46)
[2023-08-30] MEDS: ziprasidone HCL 80 MG CAP PO SCH (20:07)
[2023-08-30] MEDS: TOPIRAMATE 100 MG TAB PO SCH (20:07)
[2023-08-31 07:16] LABS: Hematocrit (blood only) 41.8 % (42.0-52.0); Hemoglobin 14.1 g/dl (14.0-18.0); Mean Corpuscular Hemoglobin 31.6 pg (25.0-34.0); Mean Corpuscular Hgb Conc 33.7 g/dL (32.0-36.0); Mean Corpuscular Volume 93.7 fL (80.0-100.0); Mean Platelet Volume 9.2 fL (9.4-12.4); Platelet Count 220 K/uL (130-400); RDW Coefficient of Variation 12.1 % (11.5-14.5); Red Blood Count 4.46 M/uL (4.70-6.10); White Blood Count 4.72 K/ul (4.8-10.8)
[2023-08-31 07:34] LABS: BUN Creatinine Ratio 5.9 (10-20); Calcium 8.9 mg/dl (8.6-10.3); Creatinine Clr Calc Pharmacy 90.3 ml/min; Est GFR (African American) 100.8 ml/min; Est GFR (Non-African American) 86.9 ml/min; Potassium 3.6 mmol/L (3.5-5.1)
[2023-08-31] MEDS: buPROPion SR 100 MG TABCR PO SCH (07:35)
[2023-08-31] MEDS: PANTOprazole 40 MG TAB PO SCH (08:48)
[2023-08-31] MEDS: DEXTROAMPHETAMINE/AMPHETAMINE IR 10 MG TAB PO SCH (08:48)
--- NOTE | 2023-08-31 16:16 | Hospitalist Progress Note ---
Date of Service August 31, 2023 Assessment & Plan (1) Diverticulitis: (2) Left flank pain: (3) Left sided abdominal pain: Plan: Pt is a 47 yo M with PMH DM II, dyslipidemia, history of gastric bypass, bipolar, depression, PTSD, ADHD, LADONNA, degenerative joint disease with chronic pain and others listed below presented to ER with complaint of left-sided abdominal pain and flank pain x 1 day, denies fever/chills, vomiting. In ER patient afebrile, vital stable. No leukocytosis, LFTs and lipase unremarkable, UA unremarkable In ER received 1L NSS, Zosyn, Zofran, several doses of morphine CT abd/pelvis: Thickening of the distal descending colon with surrounding fat stranding may represent mild diverticulitis without evidence of perforation or abscess. Left sided abdominal and flank pain may also be from musculoskeletal etiology, DDx: lumbar muscle strain, and/or tissue mass. Has noted area of edema left back in area of prior hematoma evacuation. Obtained US left back/flank area to r/o mass/fluid collection, residual hematoma. - FINDINGS/IMPRESSION: There is a small amount of edema about the incision, otherwise no abnormalities are seen apart from a small amount of scar tissue. IVF Zosyn Continue home hydrocodone prn Tylenol, Toradol, Dilaudid as needed pain Warm compresses to area Clear liquid diet -> will advance now as pt's pain much improved/ resolved Cont. to monitor CBC, BMP in a.m. If worsening, can consider possible surgery or GI consult as appropriate (4) Diabetes type 2, controlled: Plan: Diet Controlled A1c: 6.4 on 04/22/23 Monitor am glucose labs (5) Lumbar degenerative disc disease: (6) Chronic lower back pain: (7) Cervical disc disease: Plan: Chronic cervical and lumbar back pain. Follows with [facility] in [place] for pain management On chronic hydrocodone. PDMP reviewed Continue home hydrocodone and carisoprodol prn (8) Depression: (9) ADHD: (10) PTSD (post-traumatic stress disorder): (11) Bipolar disorder: Plan: Follows with [place] Continue home medications (12) Obstructive sleep apnea: Plan: CPAP HS DVT Prophylaxis Lovenox SQ Admit med surg Full Code as per discussion with pt Follows with Dr Tonie Lagos for routine care Admission and Anticipated Discharge Date Admission Date: August 30, 2023 Subjective Pt seen in follow up of abd. pain/ diverticulitis, has hx of abd. surgeries Currently laying in bed in NAD, reports feeling much better and abd. pain resolved He has not been moving much and plans to try to walk more today Also discussed advancing diet No fever, chills, chest pain, shortness of breath Review of Systems Review of Systems: All systems reviewed & are unremarkable except as noted in Subjective Physical Exam Physical Exam: General: WDWN M in NAD Head: normocephalic, atraumatic Eyes: EOMI ENT: normal inspection external ears, nose Neck: supple Lungs: clear, no respiratory distress, no wheezing/rhonchi/rales CV: RRR, no murmur Abd: normal BS, soft, no tenderness to palpation , previous tenderness at LLQ without seems to resolved Back: +healed surgical incision left posterior back and flank with superior aspect with some palpable edema with minimal tenderness to palpation without drainage and without noted erythema. +tenderness to palpation extends to left flank (improved). No spinous process tenderness to palpation of cervical, thoracic or lumbar spine. Ext: moves extremities, no LE edema Neuro: A&O x 3, no focal deficits noted, normal affect Skin: warm, dry Results & Data Results & Data Vital Signs (Past 12 Hours) Vital Signs Temp Pulse Resp BP Pulse Ox O2 Del Method 08/31/23 14:24 36.6 C 72 15 104/64 97 Room Air 08/31/23 07:30 Room Air 08/31/23 07:00 37.0 C 77 14 110/71 98 Room Air Laboratory Results 08/31/23 Range/Units 06:52 WBC 4.72 L (4.8-10.8) K/ul RBC 4.46 L (4.70-6.10) M/uL Hgb 14.1 (14.0-18.0) g/dl Hct 41.8 L (42.0-52.0) % MCV 93.7 (80.0-100.0) fL MCH 31.6 (25.0-34.0) pg MCHC 33.7 (32.0-36.0) g/dL RDW Std Deviation 42.0 (36.4-46.3) fL RDW Coeff of Irvin 12.1 (11.5-14.5) % Plt Count 220 (130-400) K/uL MPV 9.2 L (9.4-12.4) fL Sodium 141 (136-145) mmol/L Potassium 3.6 (3.5-5.1) mmol/L Chloride 106 (98-107) mmol/L Carbon Dioxide 30 (21-32) mmol/L Anion Gap 5 (3-11) BUN 6 (6-23) mg/dl Creatinine 1.01 (0.6-1.4) mg/dl Est Cr Clr Drug Dosing 90.3 ml/min Est GFR ( Amer) 100.8 ml/min Est GFR (Non-Af Amer) 86.9 ml/min BUN/Creatinine Ratio 5.9 L (10-20) Glucose 98 (70-99(Fasting)) mg/dl Calcium 8.9 (8.6-10.3) mg/dl Medications Administered Current Inpatient Medications Acetaminophen (Acetaminophen 500 Mg Tab) 500 mg PO Q4H PRN PRN Reason: pain/fever Stop: 09/29/23 13:50 Hydrocodone Bitart/Acetaminophen (Hydrocodone/Acetaminophen 10/325 Tab) 1 tab PO Q6H PRN PRN Reason: Moderate Pain (Scale 4, 5, 6) Stop: 09/13/23 13:50 Last Admin: 08/31/23 07:35 Dose: 1 tab Amphetamine/Dextroamphetamine (Dextroamphetamine/Amphetamine Ir 10 Mg Tab) 30 mg PO DAILY [facility] Stop: 09/14/23 08:59 Last Admin: 08/31/23 08:48 Dose: 30 mg Bupropion HCl (Bupropion Sr 100 Mg Tabcr) 200 mg PO DAILY [facility] Stop: 09/30/23 08:59 Last Admin: 08/31/23 07:35 Dose: 200 mg Carisoprodol (Carisoprodol 350 Mg Tablet) 350 mg PO BID PRN PRN Reason: Muscle Spasm Stop: 09/29/23 13:50 Enoxaparin Sodium (Enoxaparin Inj 40 Mg/0.4 Ml Syr) 40 mg SQ Q24H [facility] Stop: 09/29/23 13:59 Last Admin: 08/31/23 13:11 Dose: Not Given Piperacillin Sod/Tazobactam (Sod 4.5 gm/ Dextrose) 100 mls @ 25 mls/hr IV Q8H [facility]; Protocol Stop: 09/09/23 16:59 Last Infusion: 08/31/23 12:51 Dose: Infused Promethazine HCl 6.25 mg/ (Sodium Chloride) 50.25 mls @ 201 mls/hr IV Q6H PRN PRN Reason: Nausea And Vomiting Stop: 09/29/23 13:50 Ketorolac Tromethamine (Ketorolac Tromethamine 15 Mg/Ml Vial) 15 mg IV Q6H PRN PRN Reason: Moderate Pain (Scale 4, 5, 6) Stop: 09/04/23 13:50 Last Admin: 08/31/23 15:10 Dose: 15 mg Pantoprazole Sodium (Pantoprazole 40 Mg Tab) 40 mg PO DAILY [facility] Stop: 09/30/23 08:59 Last Admin: 08/31/23 08:48 Dose: 40 mg Polyethylene Glycol (Polyethylene (Miralax) 17 Gm Pack) 17 gm PO DAILY PRN PRN Reason: Constipation Stop: 09/29/23 13:50 Propranolol HCl (Propranolol Hcl 10 Mg Tab) 10 mg PO HS PRN PRN Reason: Anxiety Stop: 09/29/23 13:50 Topiramate (Topiramate 100 Mg Tab) 100 mg PO BID [facility] Stop: 09/29/23 20:59 Last Admin: 08/31/23 07:36 Dose: 100 mg Ziprasidone (Ziprasidone Hcl 80 Mg Cap) 160 mg PO HS [facility] Stop: 09/29/23 20:59 Last Admin: 08/30/23 20:07 Dose: 160 mg
[2023-09-01 06:47] LABS: Hematocrit (blood only) 43.7 % (42.0-52.0); Hemoglobin 14.6 g/dl (14.0-18.0); Mean Corpuscular Hemoglobin 31.5 pg (25.0-34.0); Mean Corpuscular Hgb Conc 33.4 g/dL (32.0-36.0); Mean Corpuscular Volume 94.4 fL (80.0-100.0); Mean Platelet Volume 9.4 fL (9.4-12.4); Platelet Count 228 K/uL (130-400); RDW Coefficient of Variation 12.4 % (11.5-14.5); RDW Standard Deviation 43.3 fL (36.4-46.3); Red Blood Count 4.63 M/uL (4.70-6.10); White Blood Count 4.34 K/ul (4.8-10.8)
[2023-09-01 07:13] LABS: BUN Creatinine Ratio 9.6 (10-20); Calcium 9.2 mg/dl (8.6-10.3); Creatinine Clr Calc Pharmacy 79.4 ml/min; Est GFR (African American) 86.1 ml/min; Est GFR (Non-African American) 74.3 ml/min; Magnesium 2.2 mg/dl (1.7-2.4); Phosphorus 4.4 mg/dl (2.5-4.9); Potassium 3.9 mmol/L (3.5-5.1)
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
--- NOTE | 2023-09-03 10:49 | Electrocardiogram Report ---
Test Reason : Blood Pressure : / mmHG Vent. Rate : 053 BPM Atrial Rate : 053 BPM P-R Int : 118 ms QRS Dur : 092 ms QT Int : 426 ms P-R-T Axes : 059 042 058 degrees QTc Int : 399 ms Sinus bradycardia Otherwise normal ECG When compared with ECG of 20-AUG-2022 16:39, No significant change was found Confirmed by Diego Flores ([id number] on 09/03/2023 10:48:42 AM Referred By: REFERRED SELF Confirmed By:Shahriar Flores
== END 2023-09-01 12:54 | disposition home or self-care (01) | DRG 392 ==
LOC: ED 06:38 → SUATTDRO 12:36 → 3N 12:36
DX: K57.32 Diverticulitis of large intestine without perforation or abscess without bleeding; M51.36 Other intervertebral disc degeneration, lumbar region; E78.5 Hyperlipidemia, unspecified; E11.9 Type 2 diabetes mellitus without complications; Z98.84 Bariatric surgery status; G89.29 Other chronic pain; Z87.891 Personal history of nicotine dependence; F43.10 Post-traumatic stress disorder, unspecified; G47.33 Obstructive sleep apnea (adult) (pediatric); F31.9 Bipolar disorder, unspecified; Z79.899 Other long term (current) drug therapy; Z91.048 Other nonmedicinal substance allergy status; M50.30 Other cervical disc degeneration, unspecified cervical region; F90.9 Attention-deficit hyperactivity disorder, unspecified type